=== PATIENT | male | born 1945 | race Two or more races ===

== ENCOUNTER 2022-04-30 08:00 | Day surgery (SDC) | payer MEDICARE, OTHER ==
[~2022-04-30] VITALS: Ht 165.1 cm; Wt 65.8 kg
[2022-04-30] VITALS (7 sets, daily range): BP systolic 87–148; BP diastolic 41–71
--- NOTE | 2022-04-30 09:40 | NUR ---
RN NOTE PT ARRIVED VIA [facility]. PT TRANSFERRED FROM [facility] TO HOSPITAL BED VIA DRAW SHEET. PT IS A&OX1, CONFUSED AND SLURRING SPEECH, TAGALOG SPEAKING ONLY. PT PLACED ON THE MONITOR. FLACC = 1 AND BREATHING IS EVEN AND UNLABORED ON 2L O2 NC. R UA FISTULA DRESSING IS CLEAN AND DRY, L UA PICC IS PATIENT AND INTACT. PT HAS SUTURES ON L CHEST WALL OPEN TO AIR, MINOR ERYTHEMA NOTED. BLOOD BAND NOTED. NO BAZAN CATHETER. RN WILL ASSIST WITH SCHEDULED PROCEDURE AND TEND TO PATIENTS NEEDS. SAFETY MEASURES IN PLACE, BED LOCKED AND IN LOWEST POSITION, SIDE RAILS UPX2, CALL LIGHT WITHIN REACH, BED ALARM ARMED.
[2022-04-30] MEDS ORDERED: PROP150T2 PO (11:07)
[2022-04-30] MEDS ORDERED: POLY17PO4 PO (11:07)
[2022-04-30] MEDS ORDERED: ALPR1TAB2 PO (11:07)
[2022-04-30] MEDS ORDERED: CYCL5TAB PO (11:07)
[2022-04-30] MEDS ORDERED: PREG50CA PO (11:07)
[2022-04-30] MEDS ORDERED: SEVE800T7 PO (11:07)
[2022-04-30] MEDS ORDERED: ACET-868 PO (11:07)
[2022-04-30] MEDS ORDERED: AMIN30LI2 PO (11:07)
[2022-04-30] MEDS ORDERED: MELA3TAB41 PO (11:07)
[2022-04-30] MEDS ORDERED: VANC1VIA4 IV (11:07)
[2022-04-30] MEDS ORDERED: PANT40TA2 PO (11:07)
[2022-04-30] MEDS ORDERED: *INS REG3 SQ (11:07)
[2022-04-30] MEDS ORDERED: ONDA4VIA52 IVP (11:07)
[2022-04-30] MEDS ORDERED: DEXT50DI8 IV (11:07)
[2022-04-30] MEDS ORDERED: BLOO-668 IN (11:07)
[2022-04-30] MEDS ORDERED: NUT.237L28 PO (11:07)
[2022-04-30] MEDS ORDERED: ESCI5TAB PO (11:07)
[2022-04-30] MEDS ORDERED: ANESTHESIA TRAY IN PYXIS 1 EA TRAY MC ONE (11:24)
--- NOTE | 2022-04-30 13:50 | NUR ---
MD COMMUNICATION RN INFORMED DR MOSLEY OF PT'S INCREASE OF HEART RATE, AVERAGE OF LOW 70'S TO 108. GAVE ORDERS: 60 MG OF CARDIZEM PO ONE TIME NOW. RN ACKNOWLEDGED AND WILL EXECUTE ORDERS.
[2022-04-30] MEDS ORDERED: DILTIAZEM HCL 30 MG TABLET PO ONE (14:00)
--- NOTE | 2022-04-30 15:00 | NUR ---
MD COMMUNICATION RN INFORMED MD OF PT'S CURRENT HR AND BP, GAVE CLEARANCE FOR TRANSPORT.
--- NOTE | 2022-04-30 17:00 | NUR ---
TRANSFER PT TRANSFERRED BACK TO [facility] BY [facility] [address]. REPORT GIVEN TO [facility], ALL QUESTIONS ANSWERED. PT IS CURRENTLY A&OX1, CONFUSED AND BREATHING EVEN AND UNLABORED ON 2L O2 NC. PT DISCHARGED VIA [facility].
== END 2022-04-30 18:00 | disposition admitted as inpatient to this hospital (09) ==
LOC: DS 08:00 → UNDOADMIN 10:19 → ICU 10:19 → UNDODISIN 17:39 → DS 18:00 → EDSTATUS 05-03 15:01
PROVIDERS: ATTEND Internal Medicine
DX: I33.0 Acute and subacute infective endocarditis (principal); E11.22 Type 2 diabetes mellitus with diabetic chronic kidney disease; I12.0 Hypertensive chronic kidney disease with stage 5 chronic kidney disease or end stage renal disease; N18.6 End stage renal disease; Z99.2 Dependence on renal dialysis; Z98.890 Other specified postprocedural states; Z79.899 Other long term (current) drug therapy
CPT/HCPCS: 93312; 93325; 99153; 99152; 93005; J2704; J7030; G0378